=== PATIENT | female | born 1965 | race Caucasian/White ===

== ENCOUNTER → 2019-01-29 15:32 | Outpatient (CLI) | payer BC, SELFPAY ==
[2014-01-29 06:51] VITALS: BMI 21.2
[2019-02-02 11:57] LABS: HPV APTIMA, High Risk Negative (Negative)
== END ==
PROVIDERS: Visit Provider Obstetrics & Gynecology
DX: Z12.4 Encounter for screening for malignant neoplasm of cervix (principal)
CPT/HCPCS: 87624; 88175; G0145

== ENCOUNTER → 2019-10-19 07:34 | Outpatient (CLI) | payer BC, SELFPAY ==
--- NOTE | 2019-10-19 07:38 | BI_ITS ---
MAMMOGRAPHY - BILATERAL SCREENING REASON FOR EXAM: Female, 54 years old. Routine annual screening examination. PERTINENT HISTORY: Non-contributory. TECHNIQUE: Digital bilateral breast zachery (3D mammographic acquisition) in the CC and MLO projections. 2-D mediolateral oblique (MLO) and craniocaudad (CC) views of both breasts were obtained. CAD: Full Field Digital Mammography with Computer Added Detection was performed. COMPARISON: Comparison is made with prior outside examination dated April 08, 2009. FINDINGS: Breast Composition: The breasts are extremely dense, which lowers the sensitivity of mammography. There are no dominant masses or suspicious calcifications. No other significant abnormalities are identified. There has been no significant change since the prior study. BI/SCREEN MAMM (CAD) W/ZACHERY BILAT IMPRESSION: Stable bilateral screening mammogram. Yearly follow-up mammogram recommended. (A) ASSESSMENT CATEGORY: BIRADS Category 1: Negative. A letter regarding these results will be sent to the patient by the facility within 30 days. Approximately 10% of breast cancers are not detected by mammography. A normal mammogram should not delay biopsy of a clinically suspicious abnormality. [id number] Electronically Signed: Francisco Javier Carter, at 8:45 EST , Service support ,
== END ==
PROVIDERS: Referring Provider Obstetrics & Gynecology; Visit Provider Obstetrics & Gynecology
DX: Z12.31 Encounter for screening mammogram for malignant neoplasm of breast (principal)
CPT/HCPCS: 77063; 77067

== ENCOUNTER 2025-11-02 11:23 | Emergency (ER) | payer BC, SELFPAY ==
[2025-11-02 11:26] VITALS: BP 95/39; PULSE 76; RESP 13; TEMP 36.7; O2SAT 100
[2025-11-02 11:29] VITALS: BP 88/58; PULSE 73; RESP 13; TEMP 36.7; O2SAT 100; BMI 21.2
--- NOTE | 2025-11-02 11:43 | CT_ITS ---
PROCEDURE: CTA CHEST W/WO CONTRAST 11/02/2025 REASON FOR EXAM: ASSESS FOR PE TECHNIQUE: Procedure Code: [id number] Modality: CT Procedure: CTA CHEST W/WO CONTRAST Multiplanar Sagittal and Coronal images were obtained. CONTRAST: Isovue 370 VOLUME: 75 mL One or more dose reduction techniques were used (e.g., Automated exposure control, adjustment of the mA and/or kV according to patient size, use of iterative reconstruction technique). RADIATION DOSE SUMMARY: CTDlvol: 4.02 mGy DLP: 153.59 mGycm COMPARISON: None. # of known CTs in the past 12 months: 0 # of known Cardiac Nuclear Medicine Studies in the past 12 months: 0 FINDINGS: Thoracic Aorta: No aneurysm. Heart: No cardiomegaly. No significant atherosclerotic calcifications. Pulmonary Vessels: No evidence of pulmonary embolism. Hardware: Unremarkable. Lymph nodes: No lymphadenopathy. Lungs and Airways: No pulmonary consolidation. Pleura: No pleural effusion or pneumothorax. Upper Abdomen: No acute abnormalities. Bones: No acute bony abnormalities. CT/CTA Chest W/WO Contrast IMPRESSION: No evidence of pulmonary embolism. Reading Location: [facility]
--- NOTE | 2025-11-02 11:43 | EKG12_ITS ---
Test Reason : NEAR SYNCOPE Blood Pressure : */* mmHG Vent. Rate : 77 BPM Atrial Rate : 77 BPM P-R Int : 146 ms QRS Dur : 80 ms QT Int : 374 ms P-R-T Axes : 80 72 59 degrees QTcB Int : 423 ms Normal sinus rhythm Normal ECG Confirmed by Bg Goldman (), graphic editor ODELL WANG ([id number]) on 11/04/2025 11:32:14 AM Also confirmed by Bg Goldman ([id number]), graphic editor ODELL WANG ([id number]) on 11/05/2025 10:56:42 AM Referred By: Confirmed By: Bg Goldman
--- NOTE | 2025-11-02 11:58 | EX.ED.DYSGE1 ---
HPI History of Present Illness Chief Complaint: Syncope Narrative Narrative: Chief complaint and HPI: 60-year-old female with past medical history of migraines presents for evaluation of near syncope from urgent care. Patient states over the past several days she has had nasal congestion, symptomatic fever, mild bodyaches, and cough. States she recently returned from [place]. States she went to urgent care for a chest x-ray in which she had a near syncopal episode while walking. Became lightheaded. [place] as if she was going to pass out. There was reported patient's glucose was normal at that time. She was given Zofran. And sent to emergency department. Patient denies any ear pain, sore throat, chest pain, abdominal pain, nausea, vomiting, diarrhea, constipation, dysuria. Review of systems: See HPI Medications: As listed on the chart Allergies: As listed on the chart PFSH: Per chart Vital signs: As listed on the chart. Reviewed. Physical exam: Gen: A&O x3, NAD Head: Normocephalic, atraumatic Eyes: No sclera icterus, conjunctiva clear, PERRL, EOMI ENT: TMs clear BL, mildly dry mucous membranes, posterior oropharynx unremarkable, uvula midline, tonsils not enlarged, no tonsillar exudates Neck: Trachea midline, No JVD, Full ROM, No meningismus CV: RRR, no murmurs, no peripheral edema Resp: Lungs CTA BL, no w/r/c GI: Abd soft, non-distended, non-tender, no r/r/g Musc: Full ROM, no deformity Skin: Warm, dry, no rash Neuro: Alert, oriented, grossly intact, sensation intact Psych: Cooperative, appropriate mood and affect [facility] Medical History (Updated 11/02/25 @ 11:35 by Anjana Hurst) Non-smoker Migraines Home Medications ?Medication ?Instructions ?Recorded ?Last Taken ?Type escitalopram oxalate 10 mg tablet 15 mg PO DAILY 01/21/14 Unknown History multivitamin with folic acid 400 1 tab PO DAILY 01/21/14 Unknown History mcg tablet (Thera) hydrocodone-acetaminophen 5-325mg 2 tab PO Q6H PRN PRN Moderate Pain 01/29/14 Unknown Rx 5mg-325mg ##20 Allergy/AdvReac Type Severity Reaction Status Date / Time amoxicillin (Amoxicillin) Allergy Hives Verified 11/02/25 11:28 Sulfa (Sulfonamide Allergy Hives Verified 11/02/25 11:28 Antibiotics) Social History Smoking Status: Never smoker EXAM Physical Exam Const Vital Signs: 11/02/25 11:26 11/02/25 11:29 11/02/25 12:03 Temperature 98.1 F 98.1 F Temperature Source Oral Temporal Pulse Rate 76 73 Respiratory Rate 13 13 Respiratory Pattern Normal Blood Pressure 95/39 L 88/58 L Blood Pressure Mean 57 68 Pulse Ox 100 100 Oxygen Delivery Method Room Air Room Air 11/02/25 12:34 11/02/25 13:26 11/02/25 13:27 Temperature 98.7 F 98.7 F Temperature Source Oral Pulse Rate 76 79 79 Respiratory Rate 16 11 L 11 L Respiratory Pattern Blood Pressure 103/66 102/75 102/75 Blood Pressure Mean 78 84 84 Pulse Ox 100 100 100 Oxygen Delivery Method Room Air Room Air MDM MDM MDM Narrative Medical decision making narrative: 60-year-old female with past medical history of migraines presents for evaluation of near syncope from urgent care. Patient states over the past several days she has had nasal congestion, symptomatic fever, mild bodyaches, and cough. States she recently returned from [place]. States she went to urgent care for a chest x-ray in which she had a near syncopal episode while walking. Became lightheaded. [place] as if she was going to pass out. There was reported patient's glucose was normal at that time. She was given Zofran. And sent to emergency department. On presentation, patient is hypotensive. She states at baseline she her blood pressure is in the low 100s. She is currently asymptomatic. The rest of her vitals are stable. Differential diagnosis includes but not limited to orthostatic hypotension, vasovagal syndrome, dehydration, electrolyte abnormality, viral illness, pneumonia, UA, PE, suspect less likely arrhythmia or ACS. NS bolus ordered. Laboratory workup ordered including CTA chest given that patient just recently traveled. CBC with baseline anemia of 11.2. Mild thrombocytopenia at 141. CMP unremarkable except for mild AST elevation of 36. Patient positive for influenza A, this would explain her mild thrombocytopenia as well as AST elevation. Troponin unremarkable. CTA negative for PE. UA is questionable for UTI but this is not a clean sample with 10-25 squamous epithelial cells. Patient not endorsing any UTI symptoms. Therefore we will send for culture and not treat at this time. Patient is positive for ketones which is consistent for mild dehydration. On reevaluation, patient's blood pressure is improved. She is at her baseline, low 100s. She ambulated without difficulty in the emergency department. Patient's near syncope was likely secondary to dehydration from influenza. Recommend keeping up with hydration. Following up with primary care physician. She confirmed understand the plan. Patient able to discharge home. EKG: Interpreted by me/EM physician: EKG shows normal sinus rhythm without any acute ischemic changes. Heart rate 77. Normal QTc. Impression: 1. Influenza A infection 2. Mild dehydration 3. Near syncope secondary to #2 4. Hypotension, resolved, secondary to #2 Lab Data Labs: Laboratory Results - last 24 hr 11/02/25 11/02/25 11:50 12:55 WBC 5.6 RBC 3.63 L Hgb 11.2 L Hct 33.8 L MCV 93.1 MCH 30.9 MCHC 33.1 RDW Std Deviation 46.5 H RDW Coeff of Brandy 13.6 Plt Count 141 L MPV 8.7 Immature Gran % (Auto) 0.400 Neut % (Auto) 78.0 H Lymph % (Auto) 11.3 L [place] % (Auto) 8.8 Eos % (Auto) 1.1 Baso % (Auto) 0.4 Absolute Neuts (auto) 4.4 Absolute Lymphs (auto) 0.63 L Nucleated RBC % 0 Sodium 136 Potassium 3.8 Chloride 101 Carbon Dioxide 23.0 Anion Gap 12 BUN 12 Creatinine 0.91 Estim Creat Clear Calc 59.90 Est GFR (MDRD) Non-Af 72 BUN/Creatinine Ratio 13.0 Glucose 111 H Calcium 8.7 Total Bilirubin 0.50 AST 36 H ALT 22 Alkaline Phosphatase 65 Troponin T High Sens 8 Total Protein 6.8 Albumin 4.1 Globulin 2.7 Albumin/Globulin Ratio 1.5 Urine Color Yellow Urine Clarity Clear Urine pH 5.0 Ur Specific [place] 1.015 Urine Protein 30 H Urine Glucose (UA) Normal Urine Ketones 15 H Urine Occult Blood 25 H Urine Nitrite Negative Urine Bilirubin Negative Urine Urobilinogen Normal Ur Leukocyte Esterase 100 H Urine RBC 0-5 SEEN Urine WBC 5-10 SEEN Ur Squamous Epith Cells 10-25 SEEN Ur Transition Epith Cell 0-5 SEEN Ur Renal Epithelial Cell 0-5 SEEN Urine Bacteria 2+ Hyaline Casts 5-10 SEEN Urine Mucus 3+ Radiography Diagnostic Testing: Clinical Impression(s) from Imaging Studies Chest CTA 11/02/25 11:43 IMPRESSION: No evidence of pulmonary embolism. Reading Location: [facility] Discharge Plan Triage Chief Complaint: Syncope ED Provider: Tramaine Youssef Dx/Rx/DC Orders Prescriptions: No Action escitalopram oxalate 10 MG tablet 15 mg PO DAILY multivitamin with folic acid [Thera] 1 TABLET tablet 1 tab PO DAILY hydrocodone-acetaminophen 1 TABLET tablet 2 tab PO Q6H PRN PRN (Reason: Moderate Pain) Qty: 20 0RF Primary Care Provider: aBshir Fowler Referrals: Care Physician,No Primary [Non-Staff, Medical] Print Language: Luxembourgish
[2025-11-02 12:06] LABS: Hematocrit 33.8 % (37-47); Hemoglobin 11.2 g/dL (12.0-15.0); Immature Granulocytes Count 0.020 X10^3/uL (0.0-0.0); Mean Corp Hgb Conc 33.1 g/dL (32-36); Mean Corpuscular Volume 93.1 fL (81-99); Mean Platelet Vol. 8.7 fl (6.2-12.0); NRBC Flagged by Analyzer 0 % (0-5); Platelet Count 141 K/mm3 (150-450); RBC Distribution Width CV 13.6 % (11.6-14.6); RBC Distribution Width SD 46.5 fl (35.1-43.9); Red Blood Count 3.63 M/mm3 (4.2-5.4); White Blood Count 5.6 K/mm3 (4.4-11.0)
--- OUTSIDE RECORDS SUMMARY | 2025-11-02 12:06 | XMS RPT_ITS | CCD ---
Author Organization [facility] Care Team Providers Care Data Librarian Name Role Phone Aron Nguyen MD Primary Care Provider SOPHIA BEYER Attending Unavailable ARON NGUYEN Primary Care Unavailable Allergies Allergy Classification Reported Allergen(s) Allergy Type Date of Onset Reaction(s) Facility (6 sources) Amoxicillin; Translations: [AMOXICILLIN] Drug Allergy 05-14-2015 [facility] (6 sources) Sulfonamides (Antibiotic); Translations: [SULFA (SULFONAMIDE ANTIBIOTICS)] Drug Allergy 05-14-2015 [facility] Medications Current Medications Medication Drug Class(es) Dates Sig (Normalized) Sig (Original) clobetasol propionate 0.5 mg/ml topical cream (5 sources) Corticosteroid clobetasol (TEMOVATE) 0.05 % cream Apply to affected area twice daily. Active Comment on above: Apply to affected ar ea twice daily. estradiol 0.1 mg/ml vaginal cream (5 sources) Estrogen Start: 10-31-2023 estradiol (ESTRACE) 0.01 % (0.1 mg/gram) vaginal cream Use 1 g vaginally one time a week. 42 g 2 10/31/2023 Active estradiol (ESTRA CE) 0.01 % (0.1 mg/gram) vaginal cream Use vaginally one time a week. 0 Active Comment on above: Use vaginally one ti me a week. Magnesium (5 sources) MAGNESIUM ORAL T doe 250 mg by mouth. Active MAGNESIUM ORAL T doe 250 mg by mouth. 0 Active Comment on above: Take 250 mg by mouth . MEDICATION, NON-DATABASE (10 sources) MEDICATION, NON- DATABASE Apple Cider Vinegar Active MEDICATION, NON- DATABASE Tacrilomus 0.1% Active MEDICATION, NON- DATABASE Apple Cider Vinegar 0 Active MEDICATION, NON- DATABASE Tacrilomus 0.1% 0 Active Comment on above: Apple Cider Vinegar Tacrilomus 0.1% MULTIVITAMIN ORAL (5 sources) MULTIVITAMIN ORA L Take by mouth. Active MULTIVITAMIN ORA L Take by mouth. 0 Active Comment on above: Take by mouth. Completed/Discontinued Medications Medication Drug Class(es) Dates Sig (Normalized) Sig (Original) [id number] 200 actuat albuterol 0.09 mg/actuat metered dose inhaler (1 source) beta2-Adrenergic Agonist Start: 05-14-2015 End: 05-27-2022 take 2 puff(s) by inhalation every four hours as needed albuterol HFA (PROAIR HFA) 90 mcg/actuation inhaler Inhale 2 Puffs as instructed every 4 hours as needed. 1 Inhaler 0 05/14/2015 05/27/2022 Discontinued (Course of therapy completed) Comment on above: Inhale 2 Puffs as in structed every 4 hours as needed. benzonatate 200 mg oral capsule (1 source) Non-narcotic Antitussive Start: 05-14-2015 End: 05-27-2022 take 1 capsule by mouth every twelve hours as needed Benzonatate (TESSALON) 200 mg capsule Take 200 mg by mouth twice daily as needed for Cough. 20 capsule 0 05/14/2015 05/27/2022 Discontinued (Course of therapy completed) Comment on above: Take 200 mg by mouth twice daily as needed for Cough. escitalopram 10 mg oral tablet (1 source) Serotonin Reuptake Inhibitor End: 05-27-2022 escitalopram oxalate (LEXAPRO) 10 mg tablet Take 15 mg by mouth once daily. 0 05/27/2022 Discontinued (Course of therapy completed) Comment on above: Take 15 mg by mouth once daily. Problems Active Problems Problem Classification Problem Date Documented Date Episodic/Chronic Genitourinary symptoms and ill-defined conditions (2 sources) Asymptomatic microscopic hematuria; Translations: [Asymptomatic microscopic hematuria] Onset: 01-14-2025 01-14-2025 Episodic Menopausal disorders (3 sources) Atrophy of vagina; Translations: [Postmenopausal atrophic vaginitis] Onset: 01-14-2025 01-14-2025 Chronic Other female genital disorders (3 sources) Vaginal scar; Translations: [Other specified noninflammatory disorders of vagina] Onset: 01-14-2025 01-14-2025 Episodic Other screening for suspected conditions (not mental disorders or infectious disease) (1 source) Patient encounter status; Translations: [Encounter for screening mammogram for malignant neoplasm of breast] Episodic Other skin disorders (3 sources) Lichen sclerosus et atrophicus; Translations: [Circumscribed scleroderma] Onset: 01-14-2025 01-14-2025 Chronic Past or Other Problems Problem Classification Problem Date Documented Da te Episodic/Chronic Other female genital disorders (6 sources) Leukoplakia of vulva; Translations: [Circumscribed scleroderma] Onset: 05-27-2022 Episodic Results Test Name Value Interpretation Reference Range Facil ity CNOVon 01-14-2025 CNOV Office Visit (GYURWP ) LINH SEGAL ([id number]) 1965 F Date Time Provider Department 01/14/25 8:30 AM SOPHIA BEYER GYURWP During your visit today, we recorded the following information about you: Blood pressure Weight Height 126/70 56.2 kg 1.651 m Sophia Beyer MD 01/14/2025 9:49 AM Signed Female Pelvic Medicine AND Reconstructive Surgery Consult CHIEF COMPLAINT: Linh Segal is a 59 year old female who presents for consultation requested by Zaria ROBERTS for an opinion regarding Prashatn Britta Therapy for Vaginal dryness/Lichen Sclorosis. My final recommendations will be communicated back to the requesting physician by way of shared Medical record or letter to requesting physician via US mail. HISTORY OF PRESENT ILLNESS: Pt here to discuss possible NATUROPATH for vaginal itching an irritation. She currently has her symptoms of lichen and atrophy under control with estrogen cream that she is using with fingertip application nightly. She also is using clobetasol and tacrolimus as needed. She has discomfort after intercourse particularly at the posterior fourchette. Medical and Symptom History: LMP: Patient's last menstrual period was 04/16/2015 (lmp unknown).; Menopause yes: ALLERGIES Allergen Reactions Amoxicillin Hives Sulfa (Sulfonamide * Hives Current Outpatient Medications Medication Sig estradiol (ESTRACE) 0.01 % (0.1 mg/gram) vaginal cream Use 1 g vaginally one time a week. MULTIVITAMIN ORAL Take by mouth. MAGNESIUM ORAL Take 250 mg by mouth. MEDICATION, NON-DATABASE Apple Cider Vinegar MEDICATION, NON-DATABASE Tacrilomus 0.1% clobetasol (TEMOVATE) 0.05 % cream Apply to affected area twice daily. No current facility-administered medications for this visit. PAST SURGICAL HISTORY Procedure Laterality Date COLONOSCOPY SCREENING 12/07/2023 next colonoscopy is due in 5 years HYSTEROSCOPY ENDOMETRIAL ABLATION LIGATE FALLOPIAN TUBE SKIN BIOPSY HX PAST MEDICAL HISTORY Diagnosis Date Lichen sclerosus Post-menopausal Postmenopausal atrophic vaginitis FAMILY HISTORY Problem Relation Age of Onset Alzheimer's Disease Mother Hyperlipidemia Mother Hypertension Mother other (Carteret's Disease) Father SOCIAL HISTORY Social History Tobacco Use Smoking status: Never Smokeless tobacco: Never Vaping Use Vaping status: Never Used Substance Use Topics Alcohol use: Yes Comment: occasionally Drug use: Never 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 Review of Systems Constitutional: Negative for chills, diaphoresis and fever. HENT: Negative for drooling, ear discharge, facial swelling, nosebleeds, sore throat and trouble swallowing. Eyes: Negative for discharge, redness, itching and visual disturbance. Respiratory: Negative for apnea, choking, chest tightness, shortness of breath, wheezing and stridor. Cardiovascular: Negative for chest pain and palpitations. Gastrointestinal: Negative for abdominal distention, abdominal pain, anal bleeding, blood in stool, nausea and vomiting. Endocrine: Negative for cold intolerance and heat intolerance. Genitourinary: Positive for dyspareunia and vaginal pain. Negative for genital sores, menstrual problem and vaginal bleeding. Musculoskeletal: Negative for gait problem, myalgias, neck pain and neck stiffness. Skin: Negative for pallor, rash and wound. Allergic/Immunologic: Negative for environmental allergies, food allergies and immunocompromised state. Neurological: Negative for dizziness, seizures, facial asymmetry, speech difficulty, light-headedness, numbness and headaches. Hematological: Negative for adenopathy. Does not bruise/bleed easily. Psychiatric/Behavioral: Negative for agitation, behavioral problems, confusion and hallucinations. OBJECTIVE: BP 126/70 Ht 165.1 cm (5' 5) Wt 56.2 kg (124 lb) LMP 04/16/2015 (LMP Unknown) BMI 20.63 kg/m? Participation of a fellow, resident, medical student, or advanced practice provider student in performing the sensitive examination was discussed with the patient or authorized telesales representative. The patient or authorized telesales representative has agreed to proceed with the sensitive examination. (Sensitive examination includes inspection and/or palpation of the breasts, pelvis, prostate and anorectal regions) Physical Exam Exam conducted with a account classification clerk present. Constitutional: Appearance: She is well-developed. HENT: Head: Normocephalic and atraumatic. Nose: Nose normal. Mouth/Throat: Mouth: Mucous membranes are moist. Pharynx: Oropharynx is clear. Eyes: Extraocular Movements: Extraocular movements intact. Conjunctiva/sclera: Conjunctivae normal. Pupils: Pupils are equal, round, and reactive to light. Cardiovascular: Rate and Rhythm: Normal rate. Pulmonary: E (more content not included)... [facility] (GYURWP) PHILIPPLINH ([id number]) 1965 F Date Time Provider Department 01/14/25 SOPHIA BEYER During your visit today, we recorded the following information about you: Gabriela Madrid RN 01/14/2025 9:53 AM Signed Vaginal scar revision referral received. Entered auth and assigned to appt on 04/28 at . Gabriela Madrid RN January 14, 2025 9:53 AM Allergies As of Date: 01/14/2025 Noted Allergy Reaction AMOXICILLIN 05/14/2015 4 - Hives SULFA (SULFONAMIDE ANTIBIOTICS) 05/14/2015 4 - Hives Date Reviewed: 01/14/2025 Reviewed by: Sophia Beyer MD - Fully Assessed Reason for Visit: Care Coordination [3491] Cmt: Vaginal Scar Revision Prescriptions as of 01/14/2025 - estradiol (ESTRACE) 0.01 % (0.1 mg/gram) vaginal cream Use 1 g vaginally one time a week. - MULTIVITAMIN ORAL Take by mouth. - MAGNESIUM ORAL Take 250 mg by mouth. - MEDICATION, NON-DATABASE Apple Cider Vinegar - MEDICATION, NON-DATABASE Tacrilomus 0.1% - clobetasol (TEMOVATE) 0.05 % cream Apply to affected area twice daily. Problem List As Of Date 01/14/2025 Noted Resolved Lichen sclerosus et atrophicus of the vulva [N9*05/27/2022 Lichen sclerosus et atrophicus [L90.0] 01/14/2025 Vaginal atrophy [N95.2] 01/14/2025 Vaginal scar [N89.8] 01/14/2025 Asymptomatic microscopic hematuria [R31.21] 01/14/2025 Encounter Status:Closed by GABRIELA MADRID on 01/14/25 [facility] 12-08-2023 [facility] Telephone (MEPRAD) PHILIPPLINH ([id number]) 1965 Date Time Provider Department 12/08/23 HUNTER CORNEJO During your visit today, we recorded the following information about you: Hunter Cornejo MD 12/08/2023 5:25 PM Signed FOLLOW UP ENDOSCOPY - RESULTS AND RECOMMENDATIONS NAME: Linh Segal CLINIC NO.: [id number] : 1965 DATE: December 08, 2023 PRIMARY CARE PROVIDER: Aron Nguyen MD Linh Segal is a patient referred for screening colonoscopy. I performed lower endoscopy on November. The patient was found to have: Lower Endoscopy Impression: - One small polyp in the cecum, removed with a cold biopsy forceps. Resected and retrieved. Clip was placed. - The examination was otherwise normal on direct and retroflexion views. Pathology demonstrated: FINAL DIAGNOSIS A. Cecum, polypectomy: - Fragments of tubular adenoma. IMPRESSION: small adenomatous polyp PLAN: INSTRUCTIONS FOLLOWING A POLYP FOUND AT COLONOSCOPY You were found to have adenomatous colon polyps. I recommend you undergo repeat endoscopy in 5 years. If you note bleeding, change in bowel habits, or other suspicious colon related symptoms before that time, those symptoms should be evaluated as necessary. If you have any difficulties or concerns, you should contact our office immediately. The patient is instructed to follow-up with your primary care provider I have instructed my staff to forward the above information to the patient and to the appropriate providers Sophia Brantley LPN 12/11/2023 1:57 PM Signed Sent results notes to patient via [facility] , History and recall letter done. Sophia Brantley LPN December 11, 2023 1:57 PM Allergies As of Date: 12/08/2023 Noted Allergy Reaction AMOXICILLIN 05/14/2015 4 - Hives SULFA (SULFONAMIDE ANTIBIOTICS) 05/14/2015 4 - Hives Date Reviewed: 12/05/2023 Reviewed by: Veda Plascencia, DREA - Fully Assessed Reason for Visit: Results [95] Prescriptions as of 12/11/2023 - estradiol (ESTRACE) 0.01 % (0.1 mg/gram) vaginal cream Use 1 g vaginally one time a week. - MULTIVITAMIN ORAL Take by mouth. - MAGNESIUM ORAL Take 250 mg by mouth. - MEDICATION, NON-DATABASE Apple Cider Vinegar - MEDICATION, NON-DATABASE Tacrilomus 0.1% - clobetasol (TEMOVATE) 0.05 % cream Apply to affected area twice daily. Problem List As Of Date 12/08/2023 Noted Resolved Lichen sclerosus et atrophicus of the vulva [N9*05/27/2022 Letter Text Encounter Status:Closed by HUNTER CORNEJO on 12/08/23 [facility] SCREEN MAMM (CAD) W/ZACHERY SMALLS AT 10-19-2019 SCREEN MAMM (CAD) W/ZACHERYGonzales GUIDRY [facility] [address] [place] [address] SCREEN MAMM (CAD) W/ZACHERY GUIDRY MR#: [id number] Acct: [id number] Name: LINH SEGAL Rep #: [id number] : 1965 F 54 From: Francisco Javier Carter MD PCP: Care Physician, No Primary Status: REG CLI Study: SCREEN MAMM (CAD) W/ZACHERY BILAT Date of Exam: 10/19/19 Exam# [id number] Ordering Dr: Luma Rolle MD MAMMOGRAPHY - BILATERAL SCREENING REASON FOR EXAM: Female, 54 years old. Routine annual screening examination. PERTINENT HISTORY: Non-contributory. TECHNIQUE: Digital bilateral breast zachery (3D mammographic acquisition) in the CC and MLO projections. 2-D mediolateral oblique (MLO) and craniocaudad (CC) views of both breasts were obtained. CAD: Full Field Digital Mammography with Computer Added Detection was performed. COMPARISON: Comparison is made with prior outside examination dated April 08, 2009. FINDINGS: Breast Composition: The breasts are extremely dense, which lowers the sensitivity of mammography. There are no dominant masses or suspicious calcifications. No other significant abnormalities are identified. There has been no significant change since the prior study. BI/SCREEN MAMM (CAD) W/ZACHERY BILAT IMPRESSION: Stable bilateral screening mammogram. Yearly follow-up mammogram recommended. (A) ASSESSMENT CATEGORY: BIRADS Category 1: Negative. A letter regarding these results will be sent to the patient by the facility within 30 days. Approximately 10% of breast cancers are not detected by mammography. A normal mammogram should not delay biopsy of a clinically suspicious abnormality. [id number] Electronically Signed: Francisco Javier Carter, at 8:45 EST , Service support , CC: No Primary Care Physician; Luma Rolle MD Base Brander: Signed Normal [facility] PAP IG HPV APTIMA 16/18,45on 02-02-2019 ADEQ Comment Normal . [facility] Comment on above: Order Comment: CYTOLOGY INFORMATION: - CLINICAL INFORMATION: POSTMENOPAUSAL - DATE LMP/MENOPAUSE: - COLLECTION VIAL: Thin Prep Vial - ACCESSIBILITY LIFT TECHNICIAN SOURCE: CERVICAL/ENDOCERVICAL - COLLECTION TECHNIQUE: BRUSH/SPATULA Specimen Comment: [id number] Specimen Comment: Source.............Cervix;Endocervix Specimen Comment: Other..............Post Menopausal Specimen Comment: No. of containers..01 ThinPrep Vial Result Comment: Sati sfactory for evaluation. Endocervical and/or squamous metaplastic cells (endocervical component) are present. Performed By: #### L [id number] #### [facility] (refer to report for specific site) refer to report for address and phone number COMM . [place] . [facility] Comment on above: Order Comment: CYTOLOGY INFORMATION: - CLINICAL INFORMATION: POSTMENOPAUSAL - DATE LMP/MENOPAUSE: - COLLECTION VIAL: Thin Prep Vial - ACCESSIBILITY LIFT TECHNICIAN SOURCE: CERVICAL/ENDOCERVICAL - COLLECTION TECHNIQUE: BRUSH/SPATULA Specimen Comment: [id number] Specimen Comment: Source.............Cervix;Endocervix Specimen Comment: Other..............Post Menopausal Specimen Comment: No. of containers..01 ThinPrep Vial Performed By: #### L [id number] #### [facility] (refer to report for specific site) refer to report for address and phone number DIAGN Comment High . [facility] Comment on above: Order Comment: CYTOLOGY INFORMATION: - CLINICAL INFORMATION: POSTMENOPAUSAL - DATE LMP/MENOPAUSE: - COLLECTION VIAL: Thin Prep Vial - ACCESSIBILITY LIFT TECHNICIAN SOURCE: CERVICAL/ENDOCERVICAL - COLLECTION TECHNIQUE: BRUSH/SPATULA Specimen Comment: [id number] Specimen Comment: Source.............Cervix;Endocervix Specimen Comment: Other..............Post Menopausal Specimen Comment: No. of containers..01 ThinPrep Vial Result Comment: EPIT HELIAL CELL ABNORMALITY. ATYPICAL SQUAMOUS CELLS OF UNDETERMINED SIGNIFICANCE (ASC-US). Performed By: #### L [id number] #### [facility] (refer to report for specific site) refer to report for address and phone number HPV APTIMA, HR Negative Normal Negative [facility] Comment on above: Order Comment: CYTOLOGY INFORMATION: - CLINICAL INFORMATION: POSTMENOPAUSAL - DATE LMP/MENOPAUSE: - COLLECTION VIAL: Thin Prep Vial - ACCESSIBILITY LIFT TECHNICIAN SOURCE: CERVICAL/ENDOCERVICAL - COLLECTION TECHNIQUE: BRUSH/SPATULA Specimen Comment: [id number] Specimen Comment: Source.............Cervix;Endocervix Specimen Comment: Other..............Post Menopausal Specimen Comment: No. of containers..01 ThinPrep Vial Result Comment: This test detects fourteen high-risk HPV types (16/18/31/33/35/39/45/ 51/52/56/58/59/66/68) without differentiation. Performed at: - [facility] [id number] Chute Loader: Indira Loco MD, Phone: [phone] Performed at: = - [facility] [id number] Chute Loader: Indira Loco MD, Phone: [phone] Performed By: #### L [id number] #### [facility] (refer to report for specific site) refer to report for address and phone number PAPSMR Comment Normal . [facility] Comment on above: Order Comment: CYTOLOGY INFORMATION: - CLINICAL INFORMATION: POSTMENOPAUSAL - DATE LMP/MENOPAUSE: - COLLECTION VIAL: Thin Prep Vial - ACCESSIBILITY LIFT TECHNICIAN SOURCE: CERVICAL/ENDOCERVICAL - COLLECTION TECHNIQUE: BRUSH/SPATULA Specimen Comment: [id number] Specimen Comment: Source.............Cervix;Endocervix Specimen Comment: Other..............Post Menopausal Specimen Comment: No. of containers..01 ThinPrep Vial Result Comment: The Pap smear is a screening test designed to aid in the detection of premalignant and malignant conditions of the uterine cervix. It is not a diagnostic procedure and should not be used as the sole means of detecting cervical cancer. Both false-positive and false-negative reports do occur. Performed By: #### L [id number] #### [facility] (refer to report for specific site) refer to report for address and phone number Path prov. ICD9 Comment Normal . [facility] Comment on above: Order Comment: CYTOLOGY INFORMATION: - CLINICAL INFORMATION: POSTMENOPAUSAL - DATE LMP/MENOPAUSE: - COLLECTION VIAL: Thin Prep Vial - ACCESSIBILITY LIFT TECHNICIAN SOURCE: CERVICAL/ENDOCERVICAL - COLLECTION TECHNIQUE: BRUSH/SPATULA Specimen Comment: [id number] Specimen Comment: Source.............Cervix;Endocervix Specimen Comment: Other..............Post Menopausal Specimen Comment: No. of containers..01 ThinPrep Vial Result Comment: [id number] Performed By: #### L [id number] #### [facility] (refer to report for specific site) refer to report for address and phone number PERFORM Comment Normal . [facility] Comment on above: Order Comment: CYTOLOGY INFORMATION: - CLINICAL INFORMATION: POSTMENOPAUSAL - DATE LMP/MENOPAUSE: - COLLECTION VIAL: Thin Prep Vial - ACCESSIBILITY LIFT TECHNICIAN SOURCE: CERVICAL/ENDOCERVICAL - COLLECTION TECHNIQUE: BRUSH/SPATULA Specimen Comment: [id number] Specimen Comment: Source.............Cervix;Endocervix Specimen Comment: Other..............Post Menopausal Specimen Comment: No. of containers..01 ThinPrep Vial Result Comment: Bekah Valle Bottoming Room Supervisor (ASCP) Performed By: #### L [id number] #### [facility] (refer to report for specific site) refer to report for address and phone number RECOMM Comment High . [facility] Comment on above: Order Comment: CYTOLOGY INFORMATION: - CLINICAL INFORMATION: POSTMENOPAUSAL - DATE LMP/MENOPAUSE: - COLLECTION VIAL: Thin Prep Vial - ACCESSIBILITY LIFT TECHNICIAN SOURCE: CERVICAL/ENDOCERVICAL - COLLECTION TECHNIQUE: BRUSH/SPATULA Specimen Comment: [id number] Specimen Comment: Source.............Cervix;Endocervix Specimen Comment: Other..............Post Menopausal Specimen Comment: No. of containers..01 ThinPrep Vial Result Comment: Sugg est follow up as clinically appropriate. Performed By: #### L [id number] #### [facility] (refer to report for specific site) refer to report for address and phone number SIGN Comment Normal . [facility] Comment on above: Order Comment: CYTOLOGY INFORMATION: - CLINICAL INFORMATION: POSTMENOPAUSAL - DATE LMP/MENOPAUSE: - COLLECTION VIAL: Thin Prep Vial - ACCESSIBILITY LIFT TECHNICIAN SOURCE: CERVICAL/ENDOCERVICAL - COLLECTION TECHNIQUE: BRUSH/SPATULA Specimen Comment: [id number] Specimen Comment: Source.............Cervix;Endocervix Specimen Comment: Other..............Post Menopausal Specimen Comment: No. of containers..01 ThinPrep Vial Result Comment: Amy Rob MD, Pathologist Performed By: #### L [id number] #### [facility] (refer to report for specific site) refer to report for address and phone number TEST METHOD Comment Normal . [facility] Comment on above: Order Comment: CYTOLOGY INFORMATION: - CLINICAL INFORMATION: POSTMENOPAUSAL - DATE LMP/MENOPAUSE: - COLLECTION VIAL: Thin Prep Vial - ACCESSIBILITY LIFT TECHNICIAN SOURCE: CERVICAL/ENDOCERVICAL - COLLECTION TECHNIQUE: BRUSH/SPATULA Specimen Comment: [id number] Specimen Comment: Source.............Cervix;Endocervix Specimen Comment: Other..............Post Menopausal Specimen Comment: No. of containers..01 ThinPrep Vial Result Comment: This liquid based ThinPrep(R) pap test was screened with the use of an image guided system. Performed By: #### L [id number] #### [facility] (refer to report for specific site) refer to report for address and phone number Vital Signs Date Time Vital Sign Value Performing Clinician Josh elias 01-14-2025 08:42-0500 Body height 165.1 cm Sophia Beyer MD Work Phone: [facility] 01-14-2025 08:42-0500 Body mass index (BMI) [Ratio] 20.63 kg/m2 Sophia Beyer MD Work Phone: [facility] 01-14-2025 08:42-0500 Body weight 56.25 kg Sophia Beyer MD Work Phone: [facility] 01-14-2025 08:42-0500 Diastolic blood pressure 70 mm[Hg] Sophia Beyer MD Work Phone: [facility] 01-14-2025 08:42-0500 Systolic blood pressure 126 mm[Hg] Sophia Beyer MD Work Phone: [facility] 05-27-2022 15:36-0400 Body height 164.5 cm Zoraida Plotts 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 Work Phone: [facility] 05-27-2022 15:36-0400 Body weight 56.7 kg Zoraida Plotts 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 Work Phone: [facility] 05-27-2022 15:36-0400 Diastolic blood pressure 60 mm[Hg] Zoraida Plotts 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 Work Phone: [facility] 05-27-2022 15:36-0400 Systolic blood pressure 92 mm[Hg] Zoraida Plotts 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 Work Phone: [facility] Encounters Encounter Date Encounter Type Care Provider Facility Start: 01-14-2025 End: 01-14-2025 Telephone encounter Sophia Beyer MD Work Phone: [facility] Comment on above: Care Coordination (V aginal Scar Revision) Start: 01-14-2025 End: 01-14-2025 ambulatory SOPHIA BEYER Facility:[facility] Start: 01-14-2025 End: 01-14-2025 Office consultation new/estab patient 60 min Sophia Beyer MD Work Phone: [facility]cology Comment on above: Vaginal atrophy (Ana sophia Dx); Lichen sclerosus et atrophicus; Vaginal scar Start: 06-06-2022 ambulatory Zoraida Villalobos s 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 Work Phone: OB/Gynecology Comment on above: Received Outside Med ical Records Start: 05-31-2022 Documentation procedure Mammog liu Coordinator [facility] Start: 05-31-2022 Letter encounter Mammography Coordinator [facility] Department Start: 05-27-2022 End: 05-27-2022 Patient encounter procedure Zoraida Mathew 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 Work Phone: OB/Gynecology Comment on above: Encounter for gyneco logical examination without abnormal finding (Primary Dx); Encounter for screening mammogram for malignant neoplasm of breast; Lichen sclerosus et atrophicus of the vulva Start: 05-27-2022 End: 05-27-2022 Patient encounter status Zoraida Mathew 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 Work Phone: OB/Gynecology Procedures Date Procedure Procedure Detail Performing Clinician Start: 12-05-2023 Colonoscopy Sophia Beyer MD Work Phone: Start: 05-31-2022 Mammography Mammograph y Coordinator Plan of Treatment Date Care Activity Detail Author Start: 12-05-2028 Screening for malign ant neoplasm of colon [facility] Start: 10-31-2028 Screening for malign ant neoplasm of cervix Cervical Cancer Screening [facility] Start: 04-28-2025 End: 04-28-2025 Patient encounter procedure 04/28/2025 3:00 PM EDT Office Visit [facility]/Gynecology [address] [place] [address] Sophia Beyer MD [address] [place] [address] [facility]/Gynecology Comment on above: [facility] Start: 11-02-2024 Screening for malign ant neoplasm of breast Mammogram Screening [facility] Start: 07-14-2024 Covid-19 Vaccine ( season) Covid-19 Vaccine ( season) [facility] Start: 05-31-2023 Mammography MAMMOGRAM [facility] Start: 07-14-2022 Influenza vaccination INFLUENZA (#1) [facility] Start: 01-29-2022 COVID-19 VACCINE (4 - Booster for Moderna series) COVID-19 VACCINE (4 - Booster for Moderna series) [facility] Start: 2016 Pneumococcal Vaccine : 50+ (1 of 1 - PCV) Pneumococcal Vaccine: 50+ (1 of 1 - PCV) [facility] Start: 2016 SHINGRIX VACCINE (1 of 2) SHINGRIX VACCINE (1 of 2) [facility] Start: 2011 COLOGUARD (FIT-DNA) COLOGUARD (FIT-D NA) [facility] Start: 2011 Colonoscopy COLONOSCOPY [facility] Start: 2011 COLORECTAL CANCER SCREENING COLORECTAL CANCER SCREENING [facility] Start: [address] COLONOGRAPHY [facility] Start: 2011 DIABETES SCREEN DIABETES SCREEN [facility] Start: 2011 Diabetes Screening Diabetes Screenin g [facility] Start: 2011 FECAL OCCULT BLOOD FECAL OCCULT BLOO D [facility] Start: 2011 Lipid panel Lipid Screening [facility] Start: 2011 LIPID SCREEN LIPID SCREEN [facility] Start: 2011 Screening for malign ant neoplasm of colon [facility] Start: 2011 SIGMOIDOSCOPY SIGMOIDOSCOPY [facility] Start: 2006 Mammography MAMMOGRAM [facility] Start: 1996 HPV TESTING HPV TESTING [facility] Start: 1987 PAP TESTING PAP TESTING [facility] Start: 1985 Hepatitis B Vaccine (1 of 3 - 19+ 3-dose series) Hepatitis B Vaccine (1 of 3 - 19+ 3-dose series) [facility] Start: 1985 Urine microalbumin profile [facility] Start: 1984 Anxiety Screening Anxiety Screening [facility] Start: 1984 Depression Screening Depression Scre ening [facility] Start: 1984 HEPATITIS C SCREENING HEPATITIS C [facility] Start: 1984 Hepatitis C screening Hepatitis C [facility] Start: 1984 HIV SCREENING HIV SCREENING [facility] Start: 1984 HIV screening HIV Screening [facility] Start: 1978 Adult depression screening assessment DEPRESSION SCREENING [facility] Plastic repair introitus PLASTIC REPAIR INTROITUS Procedures Routine Vaginal scar 1 Occurrences starting 01/14/2025 [facility] Work Phone: Comment on above: 1 Occurrences starti ng 01/14/2025 End: 06-26-2023 Screening mammography bi 2-view breast inc cad NASIM SCREENING Radiology Routine Encounter for screening mammogram for malignant neoplasm of breast 1 Occurrences starting 05/27/2022 until 06/26/2023 [facility] Work Phone: Comment on above: 1 Occurrences starti ng 05/27/2022 until 06/26/2023 [facility] Payers Date Payer Category Payer Blue Cross Blue Shield BLUE CARD PPO OOS Member Subscriber Plan / Payer (Effective 2024-Present) Name: Linh Segal Relation to Subscriber: Spouse Name: Shola Segal Date of : 1960 (Home) [address]: [address] [place] [id number] Payer ID: [id number] (NAIC) Group ID: [id number] Type: PPO Address: [address] [place] [id number] 2024 Unknown [id number] 2022 Private Health Insurance [place] [id number] 2022 Private Health Insurance [id number] 2021 Unknown [employer]ERN [employer] ACCE SS PPO [id number] 2021-Present [phone] [address] [place] [address] PPO [id number] Social History Date Type Detail Facility Start: 05-27-2022 End: 10-31-2023 Tobacco smoking status NHIS Never smoked tobacco [facility] Start: 05-27-2022 End: 10-31-2023 Tobacco use and exposure Smokeless tobacco non-user [facility] Start: 05-27-2022 End: 01-14-2025 Alcohol intake Current drinker of alcohol (finding) [facility] Start: 05-27-2022 History SDOH Alcohol Comment occasionally [facility] Start: 1965 Sex Assigned At Not on file [facility] Start: 05-17-2022 End: 05-27-2022 Exposure to SARS-CoV-2 (event) Not sure [facility] Start: 10-31-2023 End: 01-14-2025 History of Social function [facility] Start: 10-31-2023 End: 01-14-2025 Tobacco use panel [facility] National Score (1-10 0), lower number is lower risk 60 [facility] Start: 05-30-2022 Gender identity Identifies as female gender (finding) [facility] Start: 05-30-2022 Sexual orientation Heterosexual (neftali mckeon) [facility] Functional Status Date Assessment Result Facility 05-14-2015 Are you deaf, or do you have serious difficulty hearing No 05/14/2015 2:23 PM Louisa Wolf LPN No [facility] 05-14-2015 Are you blind, or do you have serious difficulty seeing, even when wearing glasses No 05/14/2015 2:23 PM Louisa Wolf LPN No [facility] 05-14-2015 Do you have serious difficulty walking or climbing stairs No 05/14/2015 2:23 PM Louisa Wolf LPN No [facility] 05-14-2015 Do you have difficul ty dressing or bathing No 05/14/2015 2:23 PM Louisa Wolf LPN No [facility] 05-14-2015 Because of a physica l, mental, or emotional condition, do you have difficulty doing errands alone such as visiting a physician's office or shopping No 05/14/2015 2:23 PM Louisa Wolf LPN No [facility] Mental Status Date Assessment Result Facility 05-14-2015 Because of a physica l, mental, or emotional condition, do you have serious difficulty concentrating, remembering, or making decisions No 05/14/2015 2:23 PM EDT Louisa De Los Santos LPN No [facility] Clinical Notes 05-27-2022 to 01-14-2025 Telephone Encounter - Gabriela Madrid RN - 01/14/2025 9:48 AM ESTTelephone Encounter - Gabriela Madrid RN - 01/14/2025 9:48 AM ESTPatient InstructionsSophia Beyer MD - 01/14/2025 8:30 AM EST Note Date & Type Note Facility 01-14-2025 Telephone encounter Note Vaginal scar revision referral received. Entered auth and assigned to appt on 04/28 at . Gabriela Madrid RN January 14, 2025 9:53 AM [facility] 01-14-2025 Miscellaneous Notes Vaginal scar revision referral received. Entered auth and assigned to appt on 04/28 at . Gabriela Madrid RN January 14, 2025 9:53 AM documented in this encounter [facility] 01-14-2025 Instructions Sophia Beyer MD - 01/14/2025 9:27 AM EST Instructions Post Vaginal Scar Revision Post Procedure: Expect spotting on and off for up to a week after the procedure. Plan to have sanitary napkins at home to use after surgery. CALL WITH BLEEDING THAT SEEMS HEAVY OR EXCESSIVE. Plan to place a folded 4x4 or 2x2* gauze just inside the vaginal opening for 3-[address]. [address] a pea-size amount of vaginal estrogen over the incision two times per day and then place the gauze. Keep the gauze in place /. You can replace it with fresh gauze as often as you like. The idea is to keep the wound bed open and prevent it from closing back up, causing the scar or vaginal band to reform. *Gauze can be purchased at any pharmacy or [facility]icine [facility]. Any brand is fine to use and it does not necessarily need to be sterile. For pain: Acetaminophen (i.e., Tylenol) 1000 mg by mouth every 8 hours taken with or alternating every four hours with Ibuprofen (i.e., Motrin) 800 mg by mouth on a regular schedule will be the best way to control discomfort following this procedure. Example: 6 AM 10 AM 2 PM 6 PM 10 PM 2 AM Acetaminophen* 1000 mg X X X Ibuprofen# 800 mg X X X Alternative: 6 AM 10 AM 2 PM 6 PM 10 PM 2 AM Acetaminophen* 1000 mg X X X Ibuprofen# 800 mg X X X *Extra-strength Tylenol (i.e. Acetaminophen) comes in 500 mg tablets so 1000 mg is two tablets. DO NOT EXCEED 3000 MG OF ACETAMINOPHEN IN 24 HOURS. #Ibuprofen comes in 200 mg tablets, so 800 mg is four tablets. Sexual intercourse is encouraged within one week after scar revision. You should remove the gauze prior to intercourse and replace immediately after. Postop check: a. You will return to the office for a postop visit one week after surgery. Most postop appointments are scheduled with the Nurse Practitioner. If you feel that you would prefer to see Dr. Beyer, please call the office and let the receptionist clerk know, so you are scheduled in the appropriate time slot. TO REACH THE DOCTOR AFTER HOURS: Please try to reserve your calls during office hours M-F 8 am-4:30 pm. However, if you have a concern or an urgent issue that arises after surgery, you can reach Dr. Beyer or the provider on-call at [phone]. ITEMS THAT MAY BE NEEDED AFTER PROCEDURE: Sanitary napkin Pain reliever (extra-strength Tylenol and ibuprofen) Estrogen cream (notify your doctor if you need a new prescription) 4x4 or 2x2 gauze documented in this encounter [facility] 01-14-2025 History of Presen t illness Narrative Female Pelvic Medicine & Reconstructive Surgery Consult CHIEF COMPLAINT: Linh Segal is a 59 year old female who presents for consultation requested by Zaria ROBERTS for an opinion regarding Prashant Britta Therapy for Vaginal dryness/Lichen Sclorosis. My final recommendations will be communicated back to the requesting physician by way of shared Medical record or letter to requesting physician via US mail. HISTORY OF PRESENT ILLNESS: Pt here to discuss possible NATUROPATH for vaginal itching an irritation. She currently has her symptoms of lichen and atrophy under control with estrogen cream that she is using with fingertip application nightly. She also is using clobetasol and tacrolimus as needed. She has discomfort after intercourse particularly at the posterior fourchette. Medical and Symptom History: LMP: Patient's last menstrual period was 04/16/2015 (lmp unknown).; Menopause yes: ALLERGIES Allergen Reactions Amoxicillin Hives Sulfa (Sulfonamide * Hives Current Outpatient Medications Medication Sig estradiol (ESTRACE) 0.01 % (0.1 mg/gram) vaginal cream Use 1 g vaginally one time a week. MULTIVITAMIN ORAL Take by mouth. MAGNESIUM ORAL Take 250 mg by mouth. MEDICATION, NON-DATABASE Apple Cider Vinegar MEDICATION, NON-DATABASE Tacrilomus 0.1% clobetasol (TEMOVATE) 0.05 % cream Apply to affected area twice daily. No current facility-administered medications for this visit. PAST SURGICAL HISTORY Procedure Laterality Date COLONOSCOPY SCREENING 12/07/2023 next colonoscopy is due in 5 years HYSTEROSCOPY ENDOMETRIAL ABLATION LIGATE FALLOPIAN TUBE SKIN BIOPSY HX PAST MEDICAL HISTORY Diagnosis Date Lichen sclerosus Post-menopausal Postmenopausal atrophic vaginitis FAMILY HISTORY Problem Relation Age of Onset Alzheimer's Disease Mother Hyperlipidemia Mother Hypertension Mother other (Lisa's Disease) Father SOCIAL HISTORY Social History Tobacco Use Smoking status: Never Smokeless tobacco: Never Vaping Use Vaping status: Never Used Substance Use Topics Alcohol use: Yes Comment: occasionally Drug use: Never 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 Review of Systems Constitutional: Negative for chills, diaphoresis and fever. HENT: Negative for drooling, ear discharge, facial swelling, nosebleeds, sore throat and trouble swallowing. Eyes: Negative for discharge, redness, itching and visual disturbance. Respiratory: Negative for apnea, choking, chest tightness, shortness of breath, wheezing and stridor. Cardiovascular: Negative for chest pain and palpitations. Gastrointestinal: Negative for abdominal distention, abdominal pain, anal bleeding, blood in stool, nausea and vomiting. Endocrine: Negative for cold intolerance and heat intolerance. Genitourinary: Positive for dyspareunia and vaginal pain. Negative for genital sores, menstrual problem and vaginal bleeding. Musculoskeletal: Negative for gait problem, myalgias, neck pain and neck stiffness. Skin: Negative for pallor, rash and wound. Allergic/Immunologic: Negative for environmental allergies, food allergies and immunocompromised state. Neurological: Negative for dizziness, seizures, facial asymmetry, speech difficulty, light-headedness, numbness and headaches. Hematological: Negative for adenopathy. Does not bruise/bleed easily. Psychiatric/Behavioral: Negative for agitation, behavioral problems, confusion and hallucinations. OBJECTIVE: BP 126/70 Ht 165.1 cm (5' 5) Wt 56.2 kg (124 lb) LMP 04/16/2015 (LMP Unknown) BMI 20.63 kg/m Participation of a fellow, resident, medical student, or advanced practice provider student in performing the sensitive examination was discussed with the patient or authorized telesales representative. The patient or authorized telesales representative has agreed to proceed with the sensitive examination. (Sensitive examination includes inspection and/or palpation of the breasts, pelvis, prostate and anorectal regions) Physical Exam Exam conducted with a account classification clerk present. Constitutional: Appearance: She is well-developed. HENT: Head: Normocephalic and atraumatic. Nose: Nose normal. Mouth/Throat: Mouth: Mucous membranes are moist. Pharynx: Oropharynx is clear. Eyes: Extraocular Movements: Extraocular movements intact. Conjunctiva/sclera: Conjunctivae normal. Pupils: Pupils are equal, round, and reactive to light. Cardiovascular: Rate and Rhythm: Normal rate. Pulmonary: Effort: Pulmonary effort is normal. Breath sounds: No wheezing, rhonchi or rales. Abdominal: General: Bowel sounds are normal. There is no distension. Palpations: Abdomen is soft. There is no mass. Tenderness: There is no abdominal tenderness. There is no guarding or rebound. Hernia: There is no hernia in the left inguinal area or right inguinal area. Genitourinary: General: Normal vulva. Exam position: Lithotomy position. Pubic Area: No rash. Labia: Right: No rash, tenderness, lesion or injury. Left: No rash, tenderness, lesion or injury. Urethra: No prolapse, urethral pain, urethral swelling or urethral lesion. Vagina: No vaginal discharge, erythema, tenderness, bleeding, lesions or prolapsed vaginal leiva. Cervix: No cervical motion tenderness, friability or erythema. Uterus: Not enlarged, not tender and no uterine prolapse. Adnexa: Right: No mass, tenderness or fullness. Left: No mass, tenderness or fullness. Comments: Significant atrophy with vaginal band at posterior fourchette. Loss of architecture to labia minora but no obstruction of introitus, urethra or clitoris. Musculoskeletal: General: No swelling, tenderness, deformity or signs of injury. Normal range of motion. Cervical back: Normal range of motion and neck supple. Lymphadenopathy: Lower Body: No right inguinal adenopathy. No left inguinal adenopathy. Skin: General: Skin is warm and dry. Coloration: Skin is not jaundiced. Findings: No erythema or lesion. Neurological: Mental Status: She is alert and oriented to person, place, and time. Cranial Nerves: No cranial nerve deficit. Gait: Gait normal. Deep Tendon Reflexes: Reflexes are normal and symmetric. Psychiatric: Mood and Affect: Mood normal. Behavior: Behavior normal. Thought Content: Thought content normal. Judgment: Judgment normal. Assessment & Plan Vaginal atrophy For her vaginal atropy we discussed estrogen therapy. I explained to her that a very minimal amount of estrogen cream is absorbed into her system and that it is not going to put her at an increased risk for breast cancer UNLESS SHE IS ON AN AROMATASE INHIBITOR. ESTROGEN CREAM PLUS AI MAY RESULT IN HIGH A 39% INCREASED RISK OF RECURRENT BREAST CANCER. We also discussed the prashant britta touch vaginal laser therapy for her vaginal atrophy. Patient was instructed to continue estrogen cream. She was given a handout on fingertip application of estrogen. Consider NATUROPATH in future. Lichen sclerosus et atrophicus We discussed treatment options for lichen sclerosus. We talked about aloe vera, estrogen cream, steroid ointments and prashant britta touch. We discussed the need for surveillance for lesions. Continue current regimen. Vaginal scar We discussed that she may need to incise the vaginal band of tissue at the posterior fourchette in order to improve her pain with intercourse. We discussed the option of incising the band of scar tissue at her introitus and let it heal by secondary intention while packing with gauze. We discussed the risks of the procedure including bleeding, infection and damage to nearby structures as well as recurrence of the scar and persistent pain with intercourse. We will plan a vaginal scar revision. She was given handout on procedure and what to expect. Orders: PLASTIC REPAIR INTROITUS; Future Sophia Beyer MD This note was created using [employer]. documented in this encounter [facility] 01-14-2025 Note HNO ID: [id number] Author: SOPHIA BEYER MD Service: ? Author Type: Physician Type: Progress Notes Filed: 01/14/2025 09:49 Note Text: Female Pelvic Medicine AND Reconstructive Surgery Consult CHIEF COMPLAINT: Linh Segal is a 59 year old female who presents for consultation requested by Zaria ROBERTS for an opinion regarding Prashant Britta Therapy for Vaginal dryness/Lichen Sclorosis. My final recommendations will be communicated back to the requesting physician by way of shared Medical record or letter to requesting physician via US mail. HISTORY OF PRESENT ILLNESS: Pt here to discuss possible NATUROPATH for vaginal itching an irritation. She currently has her symptoms of lichen and atrophy under control with estrogen cream that she is using with fingertip application nightly. She also is using clobetasol and tacrolimus as needed. She has discomfort after intercourse particularly at the posterior fourchette. Medical and Symptom History: LMP: Patient's last menstrual period was 04/16/2015 (lmp unknown).; Menopause yes: ALLERGIES Allergen Reactions Amoxicillin Hives Sulfa (Sulfonamide * Hives Current Outpatient Medications Medication Sig estradiol (ESTRACE) 0.01 % (0.1 mg/gram) vaginal cream Use 1 g vaginally one time a week. MULTIVITAMIN ORAL Take by mouth. MAGNESIUM ORAL Take 250 mg by mouth. MEDICATION, NON-DATABASE Apple Cider Vinegar MEDICATION, NON-DATABASE Tacrilomus 0.1% clobetasol (TEMOVATE) 0.05 % cream Apply to affected area twice daily. No current facility-administered medications for this visit. PAST SURGICAL HISTORY Procedure Laterality Date COLONOSCOPY SCREENING 12/07/2023 next colonoscopy is due in 5 years HYSTEROSCOPY ENDOMETRIAL ABLATION LIGATE FALLOPIAN TUBE SKIN BIOPSY HX PAST MEDICAL HISTORY Diagnosis Date Lichen sclerosus Post-menopausal Postmenopausal atrophic vaginitis FAMILY HISTORY Problem Relation Age of Onset Alzheimer's Disease Mother Hyperlipidemia Mother Hypertension Mother other (Lisa's Disease) Father SOCIAL HISTORY Social History Tobacco Use Smoking status: Never Smokeless tobacco: Never Vaping Use Vaping status: Never Used Substance Use Topics Alcohol use: Yes Comment: occasionally Drug use: Never 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 Review of Systems Constitutional: Negative for chills, diaphoresis and fever. HENT: Negative for drooling, ear discharge, facial swelling, nosebleeds, sore throat and trouble swallowing. Eyes: Negative for discharge, redness, itching and visual disturbance. Respiratory: Negative for apnea, choking, chest tightness, shortness of breath, wheezing and stridor. Cardiovascular: Negative for chest pain and palpitations. Gastrointestinal: Negative for abdominal distention, abdominal pain, anal bleeding, blood in stool, nausea and vomiting. Endocrine: Negative for cold intolerance and heat intolerance. Genitourinary: Positive for dyspareunia and vaginal pain. Negative for genital sores, menstrual problem and vaginal bleeding. Musculoskeletal: Negative for gait problem, myalgias, neck pain and neck stiffness. Skin: Negative for pallor, rash and wound. Allergic/Immunologic: Negative for environmental allergies, food allergies and immunocompromised state. Neurological: Negative for dizziness, seizures, facial asymmetry, speech difficulty, light-headedness, numbness and headaches. Hematological: Negative for adenopathy. Does not bruise/bleed easily. Psychiatric/Behavioral: Negative for agitation, behavioral problems, confusion and hallucinations. OBJECTIVE: BP 126/70 Ht 165.1 cm (5' 5) Wt 56.2 kg (124 lb) LMP 04/16/2015 (LMP Unknown) BMI 20.63 kg/m? Participation of a fellow, resident, medical student, or advanced practice provider student in performing the sensitive examination was discussed with the patient or authorized telesales representative. The patient or authorized telesales representative has agreed to proceed with the sensitive examination. (Sensitive examination includes inspection and/or palpation of the breasts, pelvis, prostate and anorectal regions) Physical Exam Exam conducted with a account classification clerk present. Constitutional: Appearance: She is well-developed. HENT: Head: Normocephalic and atraumatic. Nose: Nose normal. Mouth/Throat: Mouth: Mucous membranes are moist. Pharynx: Oropharynx is clear. Eyes: Extraocular Movements: Extraocular movements intact. Conjunctiva/sclera: Conjunctivae normal. Pupils: Pupils are equal, round, and reactive to light. Cardiovascular: Rate and Rhythm: Normal rate. Pulmonary: Effort: Pulmonary effort is normal. Breath sounds: No wheezing, rhonchi or rales. Abdominal: General: Bowel sounds are normal. There is no distension. Palpations: Abdomen is soft. There is no mass. Tenderness: There is no abdominal tendernes (more content not included)... [facility] 06-06-2022 History of Presen t illness Narrative Received records from [facility]URSING ASSISTANT. To CP to review. Silvia Zimmerman RN documented in this encounter [facility] 05-31-2022 Miscellaneous Notes May 31, 2022 PID: [id number] Linh Segal [address] [place] [address] Dear Ms. Segal, We are pleased to inform you that the results of your recent breast imaging exam on 05/31/2022 are normal. Your mammogram demonstrates that you have dense breast tissue, which could hide abnormalities. Dense breast tissue, in and of itself, is a relatively common condition. Therefore, this information is not provided to cause undue concern; rather, it is to raise your awareness and promote discussion with your health care provider regarding the presence of dense breast tissue in addition to other risk factors. Early detection of cancer is very important. We also understand recommendations regarding breast cancer screening are controversial. Please discuss with your primary care provider which strategy is best for you and whether a mammogram is right for you. Your imaging studies and report will be kept on file at [facility] as part of your permanent medical record and are available for your continuing care. Thank you for allowing us to help in meeting your health care needs. Sincerely, Dr. Dhillon Interpreting Radiologist [facility] (Normal over 40) documented in this encounter [facility] 05-27-2022 Priti Mathew APRN.CNM - 05/27/2022 3:56 PM EDT Non-Hormonal Vaginal Lubricants & Vaginal Moisturizers Symptoms of vaginal dryness can be managed by the regular use of vaginal moisturizing agents with supplemental use of vaginal lubricants for sexual intercourse. . Use of vaginal moisturizers and lubricants alone is effective treatment for vaginal dryness or dyspareunia (pain with intercourse) in some patients. Vaginal lubrications- Vaginal lubricants are designed to reduce friction and discomfort from dryness during sexual intercourse. The lubricant is applied inside the vagina and/or on the partner's penis or fingers just before sex. Coconut, Christine, Avocado or Peanut oil- natural oils are not recommended for use with latex condoms or diaphragms as they can damage the latex Astroglide- has both water and silicone based KY Jelly- water based Just like me Pure Romance Almost Naked Good Clean Love Bio Nude ultra-sensitive Pjur- silicone ID Millennium- silicone Vaginal Moisturizers- Vaginal moisturizers are intended for use routinely, typically two or three days per week, not just during sexual activity. These products are typically bioadhesives. Many moisturizer products are available in pharmacies and online. Restore- OurHouse Replens Duke Feminease Moist Again K-Y Liquid beads Products to assist with maintaining vaginal ph IsoFresh [email or web address] Rephresh documented in this encounter [facility] 05-27-2022 History of Presen t illness Narrative Linh is a 57 year old No obstetric history on file. who presents for an annual gynecologic exam without complaints. She is a transfer patient from Dr. Rolle. Postmenopausal: Yes since age 51's HRT use:- Estrace cream Last Pap: normal 2020 HPV: negative History of abnormal pap: Yes no treatment Last mammogram: 2018 normal History of abnormal mammogram: No Sexually active: Yes Pain with intercourse: No Postcoital bleeding: No Vaginal dryness: Yes- estrace Mood swings: No Insomnia: Yes OB History No obstetric history on file. 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 History Comments: Sexual Activity: Yes; Male Contraception: Tubal Ligation PAST MEDICAL HISTORY Diagnosis Date Lichen sclerosus PAST SURGICAL HISTORY Procedure Laterality Date HYSTEROSCOPY ENDOMETRIAL ABLATION LIGATE FALLOPIAN TUBE FAMILY HISTORY Problem Relation Age of Onset Alzheimer's Disease Mother Hyperlipidemia Mother Hypertension Mother other (Lisa's Disease) Father SOCIAL HISTORY Social History Tobacco Use Smoking status: Never Smoker Smokeless tobacco: Never Used Vaping Use Vaping Use: Never used Substance Use Topics Alcohol use: Yes Comment: occasionally Drug use: Never REVIEW OF SYSTEMS Abdomen: No abdominal pain, nausea, vomiting, diarrhea, or constipation. No bloating, early satiety, indigestion, or increased flatulence. Bladder: No dysuria, gross hematuria, urinary frequency, urinary urgency, or incontinence Breast: No breast lumps, nipple d/c, overlying skin changes, redness or skin retraction Allergies and current medication updated:Yes EXAM: BP 92/60 Ht 5' 4.764 (1.65m) Wt 125 lb (56.7kg) LMP 04/16/2015 BMI 20.95 kg/(m^2). GENERAL: pleasant, female in no apparent distress HEENT: Normocephalic, atraumatic, mucus membranes moist and no lesions NECK: Supple, full range of motion, no adenopathy and thyroid normal DERMATOLOGY: Normal, without lesions, non-icteric and non-hirsute BREAST: soft, non-tender, symmetric, no dominant mass, normal nipple-areolar complex, no lymphadenopathy and no nipple discharge CHEST: Normal inspiratory effort ABDOMEN: soft, non-tender and no masses PELVIC: external genitalia normal, no vulvar lesions, no cervical lesions, atrophic changes noted. BIMANUAL: uterus normal size, shape and consistency, no adnexal masses, non-tender and no cervical motion tenderness RECTOVAGINAL: deferred. NEURO: alert and oriented x3,exam grossly non-focal EXTREMITIES: normal ASSESSMENT/PLAN: 1) Health maintenance: Pap/HPV up to date. Mammogram ordered Nutrition, exercise and routine health maintenance exams reviewed. Calcium/Vitamin D supplementation information provided. 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 I explained to her that a very minimal amountof estrogen cream is absorbed into her system and that it is not going to put her at an increased risk for breast cancer UNLESS SHE IS ON AN AROMATASE INHIBITOR. ESTROGEN CREAM PLUS AI MAY RESULT IN HIGH A 39% INCREASED RISK OF RECURRENT BREAST CANCER. We also discussed the prashant britta touch vaginal laser therapy for her vaginal atrophy. Patient was instructed to continue estrogen cream. She was given a handout on fingertip applicationof estrogen. Consider NATUROPATH in future. * Assessment & Plan Note - Sophia Beyer MD - 01/14/2025 9:49 AM ESTAssociated Problem(s): Lichen sclerosus et atrophicus We discussed treatment options for lichen sclerosus. We talked about aloe vera, estrogen cream, steroid ointments and prashant britta touch. We discussed the need for surveillance for lesions. Continue current regimen. * Assessment & Plan Note - Sophia Beyer MD - 01/14/2025 9:49 AM ESTAssociated Problem(s): Vaginal scar We discussed that she may need to incise the vaginal band of tissue at the posterior fourchette in order to improve her pain with intercourse. We discussed the option of incising the band of scar tissue at her introitus and let it heal by secondary intention while packing with gauze. We discussed the risks of the procedure including bleeding, infection and damage to nearby structures as well as recurrence of the scar and persistent pain with intercourse. We will plan a vaginal scar revision. She was given handout on procedure and what to expect. Orders: PLASTIC REPAIR INTROITUS; Future [facility] Diagnostic Procedure Only (Routine) - Authorized Specialty Diagnoses / Procedures Referred By Mally brar Referred To Contact [facility] Diagnoses Encounter for screening mammogram for malignant neoplasm of breast Procedures NASIM SCREENING SCREENING MAMMOGRAPHY BI 2-VIEW BREAST INC Zoraida Glaser APRN.CN [address] [place] [address] [facility] [address] [place] [address] Referral ID Status Reason Start Date Expiration Date Visits Requested Visits Authorized [id number] Authorized Auto-Generat ed Referral 05/27/2022 06/26/2023 1 1 [facility] Summary Purpose Family History No Family History Records FoundNo Family History Records FoundNo Family History Records Found Advance Directives No Advanced Directives Records FoundNo Advanced Directives Records FoundNo Advanced Directives Records Found Additional Source Comments INFORMATION SOURCE (unrecogn ized section and content) DATE CREATED AUTHOR 10/23/2019 [facility] DATE CREATED AUTHOR AUTHOR'S ORGANIZ ATION 12/12/2023 [facility] DATE CREATED AUTHOR AUTHOR'S ORGANIZ ATION 01/15/2025 [facility] Source Comments (unrecognize d section and content) In the event this informatio n is protected by the Federal Confidentiality of Alcohol and Drug Abuse Patient Records regulations: The Federal rules restrict any use of the information to criminally investigate or prosecute any alcohol or drug abuse patient.[facility] the event this information is protected by the Federal Confidentiality of Alcohol and Drug Abuse Patient Records regulations: The Federal rules restrict any use of the information to criminally investigate or prosecute any alcohol or drug abuse patient.[facility] HospitalIn the event this information is protected by the Federal Confidentiality of Alcohol and Drug Abuse Patient Records regulations: The Federal rules restrict any use of the information to criminally investigate or prosecute any alcohol or drug abuse patient.[facility] Hospital[facility] the event this information is protected by the Federal Confidentiality of Alcohol and Drug Abuse Patient Records regulations: The Federal rules restrict any use of the information to criminally investigate or prosecute any alcohol or drug abuse patient.[facility] HospitalIn the event this information is protected by the Federal Confidentiality of Alcohol and Drug Abuse Patient Records regulations: The Federal rules restrict any use of the information to criminally investigate or prosecute any alcohol or drug abuse patient.[facility] Reason for Visit (unrecogniz ed section and content) Reason Onset Date Comments Yearly Exam 05/27/2022 Reason Comments Received Outside Medical Records Reason Comments Consult Reason Comments Care Coordination Vaginal Scar Revisio n Care Teams (unrecognized sec tion and content) Data Librarian Relationship Specialty Start Date End Date Aron Nguyen MD PCP - General Family Practice 08/22/13 Data Librarian Relationship Specialty Start Date End Date Aron Nguyen MD PCP - General Family Practice 08/22/13 Data Librarian Relationship Specialty Start Date End Date Aron Nguyen MD PCP - General Family Practice 08/22/13 Data Librarian Relationship Specialty Start Date End Date Aron Nguyen MD PCP - General Family Medicine 08/22/13 Data Librarian Relationship Specialty Start Date End Date Aron Nguyen MD PCP - General Family Medicine 08/22/13 FOR RECORDS PERTAINING TO PATIENTS WHO ARE OR HAVE BEEN ENROLLED IN A CHEMICAL DEPENDENCY/SUBSTANCEABUSE PROGRAM, SOME INFORMATION MAY BE OMITTED. This clinical summary was aggregated from multiple sources. Caution should be exercised in using it in the provision of clinical care. This summary normalizes information from multiple sources, and as a consequence, information in this document may materially change the coding, format and clinical context of patient data. In addition, data may be omitted in some cases. CLINICAL DECISIONS SHOULD BE BASED ON THE PRIMARY CLINICAL RECORDS. [employer] [facility]. provides no warranty or guarantee of the accuracy or completeness of information in this document.
[2025-11-02] MEDS: 0.9% Normal Saline (1000mL) 1,000 ML 1000 ML IV (12:09)
[2025-11-02 12:26] LABS: AST(SGOT) 36 U/L (<=31); Alanine Aminotransfer ALT/SGPT 22 U/L (<=34); Albumin, Serum 4.1 g/dL (3.5-5.0); Alkaline Phosphatase 65 U/L (35-104); Anion Gap 12 (5-15); BUN 12 mg/dL (4-19); BUN/Creat Ratio 13.0 RATIO (10-20); Calcium,Total 8.7 mg/dL (7.6-11.0); Carbon Dioxide 23.0 mmol/L (21.0-32.0); Chloride 101 mmol/L (98-108); Estimated Creatinine Clearance 59.90 ml/min (50-250); Globulin 2.7 g/dL (2.2-4.2); Glucose 111 mg/dL (70-99); Potassium 3.8 mmol/L (3.3-5.1)
[2025-11-02 12:34] VITALS: BP 103/66; PULSE 76; RESP 16; TEMP 37.1; O2SAT 100
--- NOTE | 2025-11-02 12:42 | ED.RN ---
LAB CALLED PT IS INFLUENZA A POSITIVE. DR WHITING
[2025-11-02 12:49] LABS: Troponin T High Sensitivity 8 ng/L (<=14)
[2025-11-02 13:02] LABS: Color, Urine Yellow (Yellow); Glucose, Dipstick Normal (Normal); Ketone-Dipstick 15 mg/dl (Negative); Leukocyte Esterase-Dipstick 100 /ul (Negative); Nitrite-Dipstick Negative (Negative); Occult Blood-Urine 25 /ul (Negative); Protein-Dipstick 30 mg/dl (Negative); Specific Gravity, Urine 1.015 (1.002-1.030); Urine Bilirubin Dipstick Negative (Negative)
[2025-11-02 13:08] LABS: Red Blood Cells-Urine 0-5 SEEN /hpf (0-5)
[2025-11-02 13:09] LABS: Mucous, Urine 3+ /hpf (<or=2+); Squamous Epithelial Cells - UA 10-25 SEEN /hpf (5-10); Transitional Epithelial - Ur 0-5 SEEN /hpf (0-5)
[2025-11-02 13:26] VITALS: BP 102/75; PULSE 79; RESP 11; O2SAT 100
[2025-11-02 13:27] VITALS: BP 102/75; PULSE 79; RESP 11; TEMP 37.1; O2SAT 100
== END 2025-11-02 14:38 | disposition home or self-care (01) ==
PROVIDERS: Emergency Provider Surgery; PCP Family Medicine; Visit Provider Surgery
DX: J10.1 Influenza due to other identified influenza virus with other respiratory manifestations (principal); E86.0 Dehydration; R55 Syncope and collapse
CPT/HCPCS: 71275; 80053; 81001; 84484; 85025; 87086; 87088; 87631; 93005; 96360; 99285; Q9967; A4216